=== PATIENT | female | born 1965 | race Asian ===

== ENCOUNTER 2022-02-20 19:17 | Emergency (ER) | payer BC ==
[~2022-02-20] VITALS: Ht 157.5 cm; Wt 59.9 kg
--- NOTE | 2022-02-20 19:20 | NUR ---
Place patient on chair C.
[2022-02-20 19:21] VITALS: BP 152/79
--- NOTE | 2022-02-20 19:29 | NUR ---
Dr. [place] examining patient.
[2022-02-20] MEDS ORDERED: ACETAMINOPHEN EXTRA STRENGTH 500 MG TAB PO ONE (20:10)
[2022-02-20] MEDS ORDERED: ONDANSETRON 4 MG ODT PO ONE (20:10)
[2022-02-20] MEDS ORDERED: ONDA-188 PO (20:38)
[2022-02-20 21:07] VITALS: BP 152/79
== END 2022-02-20 21:07 | disposition home or self-care (01) ==
LOC: MED 19:17
DX: F12.929 Cannabis use, unspecified with intoxication, unspecified (principal); I10 Essential (primary) hypertension; E78.5 Hyperlipidemia, unspecified; Z79.899 Other long term (current) drug therapy
CPT/HCPCS: 99283; Q0162